=== PATIENT | male | born 1975 | race Caucasian/White ===

== ENCOUNTER 2017-10-19 08:52 | Observation (INO) | payer OTHER ==
[~2017-10-19] VITALS: Ht 182.9 cm; Wt 71.5 kg
[2017-10-19 09:41] LABS: BASOPHILS ABSOLUTE AUTO 0.01 K/mm3 (0.00-0.23); BASOPHILS PERCENT AUTO 0 % (0-2); EOSINOPHILS ABSOLUTE AUTO 0.09 K/mm3 (0.00-0.68); EOSINOPHILS PERCENT AUTO 1 % (0-6); Hematocrit 40.4 % (37.0-53.0); Hemoglobin 13.6 g/dL (13.5-17.5); IMMATURE GRAN ABSOLUTE AUTO 0.03 K/mm3 (0.00-0.10); IMMATURE GRAN PERCENT AUTO 0 % (0-1); LYMPHOCYTES ABSOLUTE AUTO 1.21 K/mm3 (0.84-5.20); LYMPHOCYTES PERCENT AUTO 18 % (21-46); MONOCYTES ABSOLUTE AUTO 0.45 K/mm3 (0.16-1.47); MONOCYTES PERCENT AUTO 7 % (4-13); Mean Corpuscular HGB 32.4 pg (26.0-34.0); Mean Corpuscular HGB Conc 33.7 g/dL (31.5-36.5); Mean Corpuscular Volume 96 fL (80-100); Mean Platelet Volume 10.3 fL (9.1-12.4); NEUTROPHILS ABSOLUTE AUTO 4.89 K/mm3 (1.96-9.15); NEUTROPHILS PERCENT AUTO 73 % (41-73); Platelet Count 159 K/mm3 (150-400); RDW Coefficient Variation 12.7 % (11.7-14.2); RDW Standard Deviation 44.8 fL (35.1-46.3); White Blood Cell Count 6.68 K/mm3 (4.00-11.30)
[2017-10-19 09:45] LABS: Calcium, Ionized (POC) 1.14 mmol/L (1.10-1.46); Chloride (POC) 106 mmol/L (98-108); Creatinine (POC) 0.7 mg/dL (0.8-1.3); Glucose (ISTAT POC) 181 mg/dL (70-99); Potassium (POC) 3.7 mmol/L (3.5-5.5); Sodium (POC) 143 mmol/L (135-148); Total CO2 (POC) 21 mmol/L (21-32)
[2017-10-19 10:05] LABS: Alanine Aminotransfer (ALT/SGP 28 U/L (12-78); Albumin, Blood 3.7 g/dL (3.4-5.0); Albumin/Globulin Ratio 0.9 (0.8-1.8); Alk Phos 66 U/L (50-136); Anion Gap 14 mmol/L (6-16); Aspartate Aminotrans (AST/SGOT 21 U/L (12-37); Bilirubin, Total 0.8 mg/dL (0.1-1.0); Blood Urea Nitrogen 20 mg/dL (8-24); Bun/Creatinine Ratio 23.4 (12.0-20.0); CO2, Blood 20 mmol/L (21-32); Calcium, Blood 9.2 mg/dL (8.5-10.1); Chloride, Blood 108 mmol/L (98-108); Creatinine, Blood 0.85 mg/dL (0.60-1.20); Globulin, Blood 3.9 g/dL (2.2-4.0); Glomerular Filtration Rate >60 (60-); Glucose, Blood 185 mg/dL (70-99); Potassium, Blood 3.6 mmol/L (3.5-5.5); Sodium, Blood 142 mmol/L (136-145); Total Protein, Blood 7.6 g/dL (6.4-8.2)
[2017-10-19] MEDS ORDERED: GABA100 PO (11:06)
[2017-10-19] MEDS ORDERED: METF500C PO (11:06)
[2017-10-19] MEDS ORDERED: PROP120ER PO (11:06)
[2017-10-19] MEDS ORDERED: LISI5 PO (11:06)
[2017-10-19 13:58] LABS: Hematocrit 42.5 % (37.0-53.0); Hemoglobin 14.7 g/dL (13.5-17.5)
[2017-10-19 18:30] LABS: Hematocrit 38.8 % (37.0-53.0); Hemoglobin 13.1 g/dL (13.5-17.5)
[2017-10-20 04:58] LABS: BASOPHILS ABSOLUTE AUTO 0.02 K/mm3 (0.00-0.23); BASOPHILS PERCENT AUTO 0 % (0-2); EOSINOPHILS ABSOLUTE AUTO 0.24 K/mm3 (0.00-0.68); EOSINOPHILS PERCENT AUTO 4 % (0-6); Hematocrit 38.6 % (37.0-53.0); Hemoglobin 12.8 g/dL (13.5-17.5); IMMATURE GRAN ABSOLUTE AUTO 0.01 K/mm3 (0.00-0.10); IMMATURE GRAN PERCENT AUTO 0 % (0-1); LYMPHOCYTES ABSOLUTE AUTO 2.13 K/mm3 (0.84-5.20); LYMPHOCYTES PERCENT AUTO 35 % (21-46); MONOCYTES ABSOLUTE AUTO 0.55 K/mm3 (0.16-1.47); MONOCYTES PERCENT AUTO 9 % (4-13); Mean Corpuscular HGB 31.3 pg (26.0-34.0); Mean Corpuscular HGB Conc 33.2 g/dL (31.5-36.5); Mean Corpuscular Volume 94 fL (80-100); Mean Platelet Volume 10.5 fL (9.1-12.4); NEUTROPHILS ABSOLUTE AUTO 3.17 K/mm3 (1.96-9.15); NEUTROPHILS PERCENT AUTO 52 % (41-73); Platelet Count 143 K/mm3 (150-400); RDW Coefficient Variation 12.7 % (11.7-14.2); RDW Standard Deviation 43.8 fL (35.1-46.3); Red Blood Cell Count 4.09 M/mm3 (4.30-5.90); White Blood Cell Count 6.12 K/mm3 (4.00-11.30)
[2017-10-21 05:26] LABS: Hematocrit 39.1 % (37.0-53.0)
[2017-10-21] MEDS ORDERED: PANT40 PO (11:36)
[2017-10-21] MEDS ORDERED: PROM12.5S PO (11:39)
== END 2017-10-21 12:41 | disposition home or self-care (01) ==
LOC: ER 08:52 → MEDS 08:53 → ENPENDDIS 10-21 10:24 → MEDS 10-21 12:41
PROVIDERS: Emergency Medicine; Internal Medicine; Internal Medicine Gastroenterology
PROC: 0DB68ZX Excision of Stomach, Via Natural or Artificial Opening Endoscopic, Diagnostic (ICD-10-PCS; principal; 2017-10-20 12:00)
DX: K25.9 Gastric ulcer, unspecified as acute or chronic, without hemorrhage or perforation (principal); K92.0 Hematemesis; K31.89 Other diseases of stomach and duodenum; E11.40 Type 2 diabetes mellitus with diabetic neuropathy, unspecified; F10.10 Alcohol abuse, uncomplicated; F12.10 Cannabis abuse, uncomplicated; K21.9 Gastro-esophageal reflux disease without esophagitis; Z79.899 Other long term (current) drug therapy
CPT/HCPCS: 36415; 80047; 80053; 82947; 83690; 83735; 85014; 85018; 85025; 88305; 88342; 96361; 96374; 96375; 96376; 99285-25; C9113; G0378; J2405; J3411; J3475; J7030; J7042; J7120

== ENCOUNTER 2018-04-07 09:47 | Day surgery (SDC) | payer OTHER ==
[~2018-04-07] VITALS: Ht 182.9 cm; Wt 70.3 kg
[~2018-04-07 09:47] MED LIST: GABA100 PO; GABA300 PO; LISI5 PO; METF500C PO; Metformin HCl850 MG PO; PANT40 PO; PROM12.5S PO; PROP120ER PO; Ranitidine HCl300 MG PO; SUCR1 PO
--- NOTE | 2018-04-07 10:38 | NUR ---
04/07/18 Deepak Trejo 1 IV ATTEMPT BY [facility] RIGHT HAND. 1 IV ATTEMPT BY [facility] RIGHT FA. COULDN'T FEED CATHETER. 1 IV ATTEMPT BY [facility] LEFT FA. COULDN'T FEED CATHETER.
== END 2018-04-07 11:45 | disposition home or self-care (01) ==
LOC: ORSCSDS 09:47
PROVIDERS: Internal Medicine Gastroenterology
PROC: 0DB68ZX Excision of Stomach, Via Natural or Artificial Opening Endoscopic, Diagnostic (ICD-10-PCS; principal; 2018-04-07 11:00)
DX: K27.9 Peptic ulcer, site unspecified, unspecified as acute or chronic, without hemorrhage or perforation (principal); R11.2 Nausea with vomiting, unspecified; K21.9 Gastro-esophageal reflux disease without esophagitis; I10 Essential (primary) hypertension; E11.40 Type 2 diabetes mellitus with diabetic neuropathy, unspecified; Z87.891 Personal history of nicotine dependence; Z79.899 Other long term (current) drug therapy; K29.70 Gastritis, unspecified, without bleeding
CPT/HCPCS: 82947; 88305; 88342; J2250; J7120

== ENCOUNTER 2018-08-24 05:02 | Inpatient (IN) | payer OTHER ==
[~2018-08-24] VITALS: Ht 182.9 cm; Wt 67.0 kg
[2018-08-24] MEDS ORDERED: ESCI20 PO (05:35)
[2018-08-24] MEDS ORDERED: DULO60 PO (05:36)
[2018-08-24 06:22] LABS: Albumin/Globulin Ratio 1.1 (0.8-1.8); Bilirubin, Total 0.6 mg/dL (0.1-1.0); Bun/Creatinine Ratio 22.6 (12.0-20.0); Calcium, Blood 9.1 mg/dL (8.5-10.1); Creatinine, Blood 1.46 mg/dL (0.60-1.20); Globulin, Blood 3.7 g/dL (2.2-4.0); Potassium, Blood 4.6 mmol/L (3.5-5.5); Total Protein, Blood 7.7 g/dL (6.4-8.2)
[2018-08-24 06:34] LABS: BASOPHILS ABSOLUTE AUTO 0.06 K/mm3 (0.00-0.23); BASOPHILS PERCENT AUTO 1 % (0-2); EOSINOPHILS ABSOLUTE AUTO 0.77 K/mm3 (0.00-0.68); EOSINOPHILS PERCENT AUTO 7 % (0-6); Hematocrit 39.3 % (37.0-53.0); Hemoglobin 12.9 g/dL (13.5-17.5); IMMATURE GRAN ABSOLUTE AUTO 0.04 K/mm3 (0.00-0.10); IMMATURE GRAN PERCENT AUTO 0 % (0-1); LYMPHOCYTES ABSOLUTE AUTO 3.13 K/mm3 (0.84-5.20); LYMPHOCYTES PERCENT AUTO 29 % (21-46); MONOCYTES ABSOLUTE AUTO 0.83 K/mm3 (0.16-1.47); MONOCYTES PERCENT AUTO 8 % (4-13); Mean Corpuscular HGB 30.9 pg (26.0-34.0); Mean Corpuscular HGB Conc 32.8 g/dL (31.5-36.5); Mean Corpuscular Volume 94 fL (80-100); Mean Platelet Volume 10.1 fL (9.1-12.4); NEUTROPHILS ABSOLUTE AUTO 5.82 K/mm3 (1.96-9.15); NEUTROPHILS PERCENT AUTO 55 % (41-73); Platelet Count 189 K/mm3 (150-400); RDW Coefficient Variation 13.1 % (11.7-14.2); RDW Standard Deviation 45.1 fL (35.1-46.3); Red Blood Cell Count 4.17 M/mm3 (4.30-5.90); White Blood Cell Count 10.65 K/mm3 (4.00-11.30)
[2018-08-24 06:59] LABS: Troponin I <0.015 ng/mL (0.000-0.040)
[2018-08-24 07:02] LABS: Thyroid Stimulating Hormone 0.563 uIU/mL (0.360-4.800)
[2018-08-24 08:18] LABS: Source, Urine Voided
[2018-08-24 08:36] LABS: Bilirubin, Urine Neg (Neg); Blood, Urine Neg (Neg); Glucose Qualitative, Urine Neg (Neg); Ketones, Urine Neg (Neg); Leukocyte Esterase, Urine 1+ (Neg); Nitrite, Urine Neg (Neg); Protein, Urine Neg (Neg); Urobilinogen, Urine NORM (Normal)
[2018-08-24 08:43] LABS: Appearance, Urine Clear (Clear); Color, Urine Yellow (P-Yellow)
[2018-08-24 08:46] LABS: Red Blood Cells, Urine 0-2 /hpf (0-2)
[2018-08-24 08:47] LABS: Bacteria Few /hpf; Squamous Epithelial Cells Rare /hpf (Few)
[2018-08-24 08:48] LABS: Calcium Oxalate Crystals Mod /hpf
[2018-08-24 08:51] LABS: Uric Acid Crystals Few /hpf
[2018-08-24 09:16] LABS: U Amphetamine Screen Not Detected; U Barbituate Screen Not Detected; U Benzodiazapine Screen Not Detected; U Buprenorphine Screen Not Detected; U Cannabinoids Screen DETECTED; U Cocaine Screen Not Detected; U Methadone Screen Not Detected; U Methamphetamine Screen Not Detected; U Opiates Screen Not Detected; U Oxycodone Screen Not Detected; U Phencyclidine Screen Not Detected; U Propoxyphene Screen Not Detected
--- NOTE | 2018-08-24 11:59 | NUR ---
ARRIVED TO ROOM VIA [facility], C/O DIZZINESS AND LIGHTHEADEDNESS, ORTHOSTATIC BP DONE: LYING 127/66 HR 58, SITTING 117/66 HR 55, STANDING 94/57 HR 63, INSTRUCTED TO CALL IF HE NEEDS TO GET OOBDR. LIU AWARE PT IS IN ROOM, CONT. TO MONITOR FOR ANY CHANGES.
--- NOTE | 2018-08-24 15:20 | NUR ---
ASSUMED CARE OF PATIENT AT THIS TIME. PATIENT SLEEPING, IN NO APPARENT DISTRESS.
--- NOTE | 2018-08-24 17:32 | NUR ---
PATIENT SBA UP TO BR, VOIDED. STATES HE IS 'A LITTLE' DIZZY WHEN UP. DENIES NICE OR OTHER SX AT THIS TIME. TAKING DINNER. CHILDREN AT BEDSIDE. CONT TO MONITOR.
[2018-08-25 05:26] LABS: BASOPHILS ABSOLUTE AUTO 0.03 K/mm3 (0.00-0.23); BASOPHILS PERCENT AUTO 1 % (0-2); EOSINOPHILS PERCENT AUTO 10 % (0-6); Hematocrit 35.3 % (37.0-53.0); Hemoglobin 11.5 g/dL (13.5-17.5); IMMATURE GRAN ABSOLUTE AUTO 0.02 K/mm3 (0.00-0.10); IMMATURE GRAN PERCENT AUTO 0 % (0-1); LYMPHOCYTES ABSOLUTE AUTO 2.07 K/mm3 (0.84-5.20); LYMPHOCYTES PERCENT AUTO 43 % (21-46); MONOCYTES ABSOLUTE AUTO 0.45 K/mm3 (0.16-1.47); MONOCYTES PERCENT AUTO 9 % (4-13); Mean Corpuscular HGB 31.1 pg (26.0-34.0); Mean Corpuscular HGB Conc 32.6 g/dL (31.5-36.5); Mean Corpuscular Volume 95 fL (80-100); Mean Platelet Volume 10.6 fL (9.1-12.4); NEUTROPHILS ABSOLUTE AUTO 1.78 K/mm3 (1.96-9.15); NEUTROPHILS PERCENT AUTO 37 % (41-73); Platelet Count 117 K/mm3 (150-400); RDW Coefficient Variation 12.6 % (11.7-14.2); RDW Standard Deviation 43.7 fL (35.1-46.3); White Blood Cell Count 4.85 K/mm3 (4.00-11.30)
[2018-08-25 05:43] LABS: Alanine Aminotransfer (ALT/SGP 23 U/L (12-78); Albumin, Blood 3.1 g/dL (3.4-5.0); Alk Phos 62 U/L (50-136); Anion Gap 3 mmol/L (6-16); Aspartate Aminotrans (AST/SGOT 12 U/L (12-37); Bilirubin, Total 0.4 mg/dL (0.1-1.0); Blood Urea Nitrogen 21 mg/dL (8-24); Bun/Creatinine Ratio 20.6 (12.0-20.0); CO2, Blood 27 mmol/L (21-32); Calcium, Blood 8.6 mg/dL (8.5-10.1); Chloride, Blood 115 mmol/L (98-108); Creatinine, Blood 1.02 mg/dL (0.60-1.20); Globulin, Blood 3.2 g/dL (2.2-4.0); Glomerular Filtration Rate >60 (60-); Glucose, Blood 80 mg/dL (70-99); Potassium, Blood 4.4 mmol/L (3.5-5.5); Sodium, Blood 145 mmol/L (136-145); Total Protein, Blood 6.3 g/dL (6.4-8.2)
--- NOTE | 2018-08-25 06:18 | NUR ---
SHIFT SUMMARY LYING IN SEMI FOWLERS WITH EYES CLOSED. DENIES PAIN, DISCOMFORT, OR FURTHER NEEDS AT THIS TIME. NO FURTHER CHANGES SINCE START OF SHIFT. SAFETY MEASURES IN PLACE. WILL GIVE HAND OFF TO ONCOMING SHIFT USING SBAR.
--- NOTE | 2018-08-25 09:11 | NUR ---
ECHOCARDIOGRAM COMPLETED
[2018-08-25] MEDS ORDERED: GABA300 PO (15:08)
[2018-08-25] MEDS ORDERED: Tylenol325 MG PO (15:09)
== END 2018-08-25 15:39 | disposition home or self-care (01) | DRG 312 ==
LOC: ER 05:02 → SURS 05:03
PROVIDERS: Emergency Medicine; ADMIT Hospitalist
DX: I95.1 Orthostatic hypotension (principal); N17.9 Acute kidney failure, unspecified; E11.42 Type 2 diabetes mellitus with diabetic polyneuropathy; F32.9 Major depressive disorder, single episode, unspecified; E86.9 Volume depletion, unspecified; F10.20 Alcohol dependence, uncomplicated; E78.5 Hyperlipidemia, unspecified; G62.1 Alcoholic polyneuropathy; K21.9 Gastro-esophageal reflux disease without esophagitis; G89.29 Other chronic pain; I10 Essential (primary) hypertension
CPT/HCPCS: 36415; 76770; 80053; 81001; 82947; 84443; 84484; 85025; 87086; 93005; 93010; 93306; 96361; 96374; 97161; 97530; 99285-25; J1650; J1885; J7030; J7120

== ENCOUNTER 2018-08-27 22:56 | Emergency (ER) | payer OTHER ==
[~2018-08-27] VITALS: Ht 182.9 cm; Wt 69.0 kg
[~2018-08-27 22:56] MED LIST changes: +DULO60 PO; +ESCI20 PO; +Tylenol325 MG PO
== END 2018-08-28 | disposition home or self-care (01) ==
LOC: ER 22:56
DX: M79.2 Neuralgia and neuritis, unspecified (principal); M79.671 Pain in right foot; Z79.899 Other long term (current) drug therapy; Z79.84 Long term (current) use of oral hypoglycemic drugs; E11.9 Type 2 diabetes mellitus without complications; K21.9 Gastro-esophageal reflux disease without esophagitis
CPT/HCPCS: 96372; 99283-25; J1200; J1630; J1885

== ENCOUNTER 2018-11-03 06:52 | Emergency (ER) | payer OTHER ==
[~2018-11-03] VITALS: Ht 182.9 cm; Wt 70.3 kg
[2018-11-03] MEDS ORDERED: Percocet 5-3251 EACH PO (08:45)
== END 2018-11-03 08:50 | disposition home or self-care (01) ==
LOC: ER 06:52
DX: E11.42 Type 2 diabetes mellitus with diabetic polyneuropathy (principal); Z88.8 Allergy status to other drugs, medicaments and biological substances; Z79.899 Other long term (current) drug therapy; Z79.84 Long term (current) use of oral hypoglycemic drugs; Z87.891 Personal history of nicotine dependence
CPT/HCPCS: 99283

== ENCOUNTER 2018-12-21 20:29 | Emergency (ER) | payer OTHER ==
[~2018-12-21] VITALS: Ht 182.9 cm; Wt 68.0 kg
[~2018-12-21 20:29] MED LIST changes: +Percocet 5-3251 EACH PO
[2018-12-21 21:40] LABS: BASOPHILS ABSOLUTE AUTO 0.04 K/mm3 (0.00-0.23); BASOPHILS PERCENT AUTO 1 % (0-2); EOSINOPHILS ABSOLUTE AUTO 0.21 K/mm3 (0.00-0.68); EOSINOPHILS PERCENT AUTO 3 % (0-6); IMMATURE GRAN ABSOLUTE AUTO 0.02 K/mm3 (0.00-0.10); IMMATURE GRAN PERCENT AUTO 0 % (0-1); LYMPHOCYTES ABSOLUTE AUTO 2.04 K/mm3 (0.84-5.20); LYMPHOCYTES PERCENT AUTO 28 % (21-46); MONOCYTES ABSOLUTE AUTO 0.69 K/mm3 (0.16-1.47); MONOCYTES PERCENT AUTO 9 % (4-13); Mean Corpuscular HGB 30.9 pg (26.0-34.0); Mean Corpuscular HGB Conc 33.3 g/dL (31.5-36.5); Mean Corpuscular Volume 93 fL (80-100); Mean Platelet Volume 10.1 fL (9.1-12.4); NEUTROPHILS ABSOLUTE AUTO 4.37 K/mm3 (1.96-9.15); NEUTROPHILS PERCENT AUTO 59 % (41-73); Platelet Count 205 K/mm3 (150-400); RDW Coefficient Variation 11.8 % (11.7-14.2); RDW Standard Deviation 39.8 fL (35.1-46.3); Red Blood Cell Count 4.86 M/mm3 (4.30-5.90); White Blood Cell Count 7.37 K/mm3 (4.00-11.30)
[2018-12-21 21:58] LABS: Alanine Aminotransfer (ALT/SGP 31 U/L (12-78); Albumin, Blood 4.3 g/dL (3.4-5.0); Albumin/Globulin Ratio 1.1 (0.8-1.8); Alk Phos 66 U/L (50-136); Anion Gap 8 mmol/L (6-16); Aspartate Aminotrans (AST/SGOT 19 U/L (12-37); Bilirubin, Total 0.8 mg/dL (0.1-1.0); Blood Urea Nitrogen 12 mg/dL (8-24); CO2, Blood 27 mmol/L (21-32); Calcium, Blood 9.6 mg/dL (8.5-10.1); Chloride, Blood 106 mmol/L (98-108); Creatinine, Blood 0.75 mg/dL (0.60-1.20); Globulin, Blood 3.9 g/dL (2.2-4.0); Glomerular Filtration Rate >60 (60-); Glucose, Blood 90 mg/dL (70-99); Potassium, Blood 3.4 mmol/L (3.5-5.5); Sodium, Blood 141 mmol/L (136-145); Total Protein, Blood 8.2 g/dL (6.4-8.2)
[2018-12-21] MEDS ORDERED: ONDA4ODT MM (22:38)
== END 2018-12-22 00:21 | disposition home or self-care (01) ==
LOC: ER 20:29
PROVIDERS: Emergency Medicine
DX: R10.9 Unspecified abdominal pain (principal); R11.2 Nausea with vomiting, unspecified; E11.9 Type 2 diabetes mellitus without complications; Z87.891 Personal history of nicotine dependence; Z88.8 Allergy status to other drugs, medicaments and biological substances; Z79.899 Other long term (current) drug therapy; Z79.84 Long term (current) use of oral hypoglycemic drugs
CPT/HCPCS: 36415; 80053; 83690; 85025; 96361; 96374; 99284-25; A9270-GY; J2405; J7030